=== PATIENT | female | born 1945 | race Caucasian/White ===

== ENCOUNTER 2019-03-20 15:29 | Observation (INO) ==
[2019-03-20] MEDS ORDERED: SODIUM CHLORIDE 0.9% 1,000 ML IV STA (16:38)
[2019-03-20 17:39] LABS: Basophils % 0.2 % (0.0-0.8); Eosinophils # 0.1 10*3/uL (0.0-0.87); Eosinophils % 0.4 % (0.00-10.9); Hematocrit 30.7 VOL% (35.7-47.0); Immature Granulocytes % 1.4 %; Immature Granulocytes Absolute 0.23 #; Lymphocytes # 0.8 10*3/uL (1.4-4.0); Lymphocytes % 4.9 % (21.3-54.2); Mean Corpuscular HGB Conc 32.6 GM/DL (32-36); Mean Corpuscular Volume 85.8 FL (87-102); Mean Platelet Volume 12.2 FL (9.6-12.0); Monocytes % 38.7 % (1.7-12.7); Neutrophils % 54.4 % (38.7-73.9); Platelet Count 171 T/CUMM (130-400); Red Blood Count 3.58 MC/CUMM (3.8-5.5); Red Cell Distribution Width 13.6 % (9.3-17.3)
[2019-03-20 17:45] LABS: INR 1.1; PT Patient Result 12.3 SECS; Partial Thromboplastin Time 23.6 SECS (0-40)
[2019-03-20 18:00] LABS: Lymphocytes 4 % (20-55); Platelet Estimate Adequate; Segmented Neutrophils 59 % (50-85); Total Cells Counted 100
[2019-03-20 18:01] LABS: Albumin 3.3 G/DL (3.4-5.0); Bilirubin,Total 0.5 MG/DL (0.2-1.0); Calcium 9.2 MG/DL (8.5-10.1); Osmolality,Calculated 281.5 MOS/KG (273-304); Total Protein 7.5 G/DL (6.4-8.3)
[2019-03-20 18:35] LABS: Apearance,Urine Slightly Hazy (Clear); Bacteria,Urine Occasional /HPF (Few); Bilirubin,Urine Negative (Negative); Blood, Urine Large mg/dL (Negative); Glucose,Urine (UA) 150 mg/dL (Negative); Ketones,Urine Negative (Negative); Mucus,Urine Occasional /LPF (Occasional); Nitrite,Urine Negative (Negative); Protein,Urine 30 MG/DL; RBC,Urine 30 /HPF (0-4); Squamous Epithelial Cell,Urine Occasional /HPF (0-10); Urine Color Yellow (Yellow); Urine Specific Gravity 1.018 (1.001-1.035); Urine Urobilinogen < 2.0 EU/DL (0.2-1.0); WBC,Urine 1 /HPF (0-6)
[2019-03-20] MEDS ORDERED: DEXTROSE 10% 250 ML BAG IV PRN (19:04)
[2019-03-20] MEDS ORDERED: ONDANSETRON 4 MG/2 ML VIAL IV PRN (19:04)
[2019-03-20] MEDS ORDERED: GLUCAGON 1 MG VIAL IM PRN (19:04)
[2019-03-20] MEDS: SODIUM CHLOR 0.9% KCL 20 MEQ 20 MEQ/1,000 ML BAG IV SCH (22:04)
[2019-03-20] MEDS: ACETAMINOPHEN 325 MG TABLET PO PRN (22:05)
[2019-03-20] MEDS: APIXABAN 5 MG TABLET PO SCH (22:05)
[2019-03-20] MEDS: MORPHINE 4 MG/1 ML VIAL IV PRN (22:05)
[2019-03-20] MEDS: GABAPENTIN 400 MG CAPSULE PO SCH (22:05)
[2019-03-20] MEDS: INSULIN LISPRO 100 UNIT/ML SUBCUT SCH (22:08)
[2019-03-21 05:11] LABS: Basophils % 0.1 % (0.0-0.8); Eosinophils # 0.1 10*3/uL (0.0-0.87); Eosinophils % 0.4 % (0.00-10.9); Hemoglobin 8.4 GM/DL (12.0-16.0); Immature Granulocytes % 0.9 %; Immature Granulocytes Absolute 0.13 #; Lymphocytes % 7.4 % (21.3-54.2); Mean Corpuscular HGB Conc 32.3 GM/DL (32-36); Mean Corpuscular Volume 88.7 FL (87-102); Mean Platelet Volume 12.4 FL (9.6-12.0); Monocytes % 36.4 % (1.7-12.7); Neutrophils % 54.8 % (38.7-73.9); Platelet Count 154 T/CUMM (130-400); Red Blood Count 2.93 MC/CUMM (3.8-5.5); Red Cell Distribution Width 13.6 % (9.3-17.3); White Blood Count 13.7 T/CUMM (4-12)
[2019-03-21 05:33] LABS: Lymphocytes 10 % (20-55); Metamyelocytes 1 %; Total Cells Counted 100
[2019-03-21 05:35] LABS: Band Neutrophils 3 % (0-10); Platelet Estimate Adequate; Segmented Neutrophils 53 % (50-85)
[2019-03-21 05:54] LABS: Blood Urea Nitrogen 31 MG/DL (7-18); Calcium 8.5 MG/DL (8.5-10.1); Glucose 284 MG/DL (74-106); HDL Cholesterol 17 MG/DL (40-60); Risk Ratio 2.94; Thyroid Stimulating Hormone 0.625 uIU/ml (0.358-3.74); Triglycerides 124 MG/DL (2-150); VLDL CHOLESTEROL 24.8 MG/DL
[2019-03-21] MEDS: MORPHINE 4 MG/1 ML VIAL IV PRN ×5 (06:13→22:49)
[2019-03-21] MEDS: SODIUM CHLOR 0.9% KCL 20 MEQ 20 MEQ/1,000 ML BAG IV SCH ×2 (07:36→16:27)
[2019-03-21] MEDS ORDERED: NALOXEGOL 25 MG PO SCH (09:00)
[2019-03-21] MEDS: hydroCHLOROthiazide 25 MG TABLET PO SCH (09:01)
[2019-03-21] MEDS: FENOFIBRATE 145 MG TABLET PO SCH (09:02)
[2019-03-21] MEDS: GABAPENTIN 400 MG CAPSULE PO SCH ×3 (09:02→21:05)
[2019-03-21] MEDS: PARoxetine 20 MG TABLET PO SCH (09:02)
[2019-03-21] MEDS: LOSARTAN 50 MG TABLET PO SCH (09:02)
[2019-03-21] MEDS: ATENOLOL 50 MG TABLET PO SCH (09:02)
[2019-03-21] MEDS: PANTOPRAZOLE 40 MG TABLET PO SCH (09:02)
[2019-03-21] MEDS: ATORVASTATIN 40 MG TABLET PO SCH (09:02)
[2019-03-21] MEDS: INSULIN LISPRO 100 UNIT/ML SUBCUT SCH ×4 (09:50→21:45)
[2019-03-21] MEDS: POTASSIUM CHLORIDE 20 MEQ TABLET PO SCH (09:51)
[2019-03-21] MEDS: APIXABAN 5 MG TABLET PO SCH ×2 (12:54→21:04)
[2019-03-21] MEDS: MAGNESIUM HYDROXIDE SUSP 30 ML UDCUP PO PRN ×2 (14:51→21:04)
[2019-03-21] MEDS: MAGNESIUM OXIDE 400 MG TABLET PO SCH (21:05)
[2019-03-21] MEDS: ACETAMINOPHEN 325 MG TABLET PO PRN (21:08)
[2019-03-22] MEDS: SODIUM CHLOR 0.9% KCL 20 MEQ 20 MEQ/1,000 ML BAG IV SCH ×2 (01:53→12:39)
[2019-03-22 05:16] LABS: Basophils % 0.1 % (0.0-0.8); Eosinophils # 0.1 10*3/uL (0.0-0.87); Eosinophils % 0.6 % (0.00-10.9); Hematocrit 26.5 VOL% (35.7-47.0); Hemoglobin 8.6 GM/DL (12.0-16.0); Immature Granulocytes % 1.6 %; Immature Granulocytes Absolute 0.17 #; Lymphocytes % 8.8 % (21.3-54.2); Mean Corpuscular HGB Conc 32.5 GM/DL (32-36); Mean Platelet Volume 12.2 FL (9.6-12.0); Monocytes % 35.2 % (1.7-12.7); Neutrophils % 53.7 % (38.7-73.9); Platelet Count 168 T/CUMM (130-400); Red Blood Count 3.01 MC/CUMM (3.8-5.5); Red Cell Distribution Width 13.9 % (9.3-17.3); White Blood Count 10.9 T/CUMM (4-12)
[2019-03-22 05:36] LABS: Band Neutrophils 1 % (0-10); Hypochromasia 1+; Lymphocytes 6 % (20-55); Platelet Estimate Adequate; Segmented Neutrophils 70 % (50-85); Total Cells Counted 100
[2019-03-22 05:48] LABS: Calcium 8.7 MG/DL (8.5-10.1); Osmolality,Calculated 291.1 MOS/KG (273-304)
[2019-03-22] MEDS: MORPHINE 4 MG/1 ML VIAL IV PRN ×2 (08:18→12:48)
[2019-03-22] MEDS: ATORVASTATIN 40 MG TABLET PO SCH (09:00)
[2019-03-22] MEDS: ATENOLOL 50 MG TABLET PO SCH (09:00)
[2019-03-22] MEDS: PARoxetine 20 MG TABLET PO SCH (09:00)
[2019-03-22] MEDS: FENOFIBRATE 145 MG TABLET PO SCH (09:00)
[2019-03-22] MEDS: POTASSIUM CHLORIDE 20 MEQ TABLET PO SCH (09:00)
[2019-03-22] MEDS: hydroCHLOROthiazide 25 MG TABLET PO SCH (09:00)
[2019-03-22] MEDS: APIXABAN 5 MG TABLET PO SCH (09:00)
[2019-03-22] MEDS: LOSARTAN 50 MG TABLET PO SCH (09:00)
[2019-03-22] MEDS: GABAPENTIN 400 MG CAPSULE PO SCH ×2 (09:00→16:38)
[2019-03-22] MEDS: PANTOPRAZOLE 40 MG TABLET PO SCH (09:01)
[2019-03-22] MEDS: MAGNESIUM OXIDE 400 MG TABLET PO SCH (09:01)
[2019-03-22] MEDS: INSULIN LISPRO 100 UNIT/ML SUBCUT SCH ×2 (09:01→12:39)
[2019-03-22 15:39] VITALS: BP 157/57
== END 2019-03-22 17:10 | disposition home or self-care (01) ==
LOC: N.EDINP 15:29 → N.ED 15:29 → N.5E 19:27